=== PATIENT | female | born 1955 | race Caucasian/White ===

== ENCOUNTER 2023-01-07 16:22 | Emergency (ER) | payer MEDICARE, OTHER ==
[~2023-01-07] VITALS: Ht 162.6 cm; Wt 102.1 kg
[~2023-01-07 16:22] MED LIST: PRAV40TA3 PO
[2023-01-07] MEDS ORDERED: diphenhydrAMINE 50 MG/1 ML VIAL ONE (17:22)
[2023-01-07] MEDS ORDERED: HYDROMORPHONE 1 MG/1 ML DISP.SYRIN ONE (17:22)
[2023-01-07] MEDS: diphenhydrAMINE 50 MG/1 ML VIAL IM ONE (17:33)
[2023-01-07] MEDS: HYDROMORPHONE 1 MG/1 ML DISP.SYRIN IM ONE (17:33)
[2023-01-07] MEDS ORDERED: NABU-140 PO (18:23)
[2023-01-07] MEDS ORDERED: HYDR-3980 PO (18:23)
[2023-01-07 18:52] VITALS: BP 166/81; TEMP 98.6; O2SAT 97
== END 2023-01-07 18:52 | disposition home or self-care (01) ==
LOC: ER 16:24
DX: M17.11 Unilateral primary osteoarthritis, right knee (principal); M54.40 Lumbago with sciatica, unspecified side; E03.9 Hypothyroidism, unspecified; E78.5 Hyperlipidemia, unspecified; Z79.899 Other long term (current) drug therapy
CPT/HCPCS: 29505; 72131; 73564; 96372; 99285; J1170; J1200; A4606; A4663

== ENCOUNTER 2023-01-12 16:09 | Emergency (ER) | payer MEDICARE, OTHER ==
[~2023-01-12] VITALS: Ht 160 cm; Wt 102.1 kg
[~2023-01-12 16:09] MED LIST changes: +HYDR-3980 PO; +NABU-140 PO
[2023-01-12] MEDS ORDERED: methylPREDNISolone ACETATE 40 MG VIAL IM ONE (17:30)
[2023-01-12 19:37] VITALS: BP 150/67; TEMP 98; O2SAT 96
== END 2023-01-12 19:30 | disposition home or self-care (01) ==
LOC: ER 16:09
DX: M17.11 Unilateral primary osteoarthritis, right knee (principal); M54.40 Lumbago with sciatica, unspecified side; E03.9 Hypothyroidism, unspecified; E78.5 Hyperlipidemia, unspecified; Z79.899 Other long term (current) drug therapy
CPT/HCPCS: 29505; 93971; 96372; 99285; J1030; A4606; A4663

== ENCOUNTER 2024-02-14 03:19 | Emergency (ER) | payer MEDICARE, OTHER ==
[~2024-02-14] VITALS: Ht 152.4 cm; Wt 95.3 kg
[2024-02-14 04:21] LABS: BASOPHILS % (AUTO) 0.2 % (0.0-2.0); EOSINOPHILS # (AUTO) 0.1 K/uL (0.0-0.7); EOSINOPHILS % (AUTO) 0.6 % (0.0-7.0); HEMATOCRIT 43.2 % (31.2-41.9); HEMOGLOBIN 14.3 g/dL (10.9-14.3); LYMPHOCYTES # (AUTO) 5.4 K/uL (0.8-4.8); LYMPHOCYTES % (AUTO) 40.8 % (20.5-51.5); MEAN CORPUSCULAR HEMOGLOBIN 28.9 uug (24.7-32.8); MEAN CORPUSCULAR HGB CONC 33 g/dL (32.3-35.6); MEAN CORPUSCULAR VOLUME 87.2 fL (75.5-95.3); MONOCYTES # (AUTO) 0.9 K/uL (0.1-1.30); MONOCYTES % (AUTO) 6.6 % (0.0-11.0); NEUTROPHILS # (AUTO) 6.9 K/uL (1.8-8.9); NEUTROPHILS % (AUTO) 51.8 % (38.5-71.5); PLATELET COUNT (AUTO) 209 K/uL (179-408); RED BLOOD CELL COUNT(AUTO) 4.95 MIL/uL (3.63-4.92); RED CELL DISTRIBUTION WIDTH 14.6 % (12.3-17.7); WHITE BLOOD COUNT (AUTO) 13.3 K/uL (3.8-11.8)
[2024-02-14 04:37] LABS: POTASSIUM 3.3 mmol/L (3.5-5.1)
[2024-02-14] MEDS ORDERED: POTASSIUM CHLORIDE 20 MEQ TAB.PRT.SR ONE (05:32)
[2024-02-14] MEDS ORDERED: ACETAMINOPHEN 325 MG TABLET ONE (05:32)
[2024-02-14] MEDS: POTASSIUM CHLORIDE 20 MEQ TAB.PRT.SR PO ONE (05:35)
[2024-02-14] MEDS: ACETAMINOPHEN 325 MG TABLET PO ONE (05:35)
[2024-02-14 05:51] VITALS: BP 160/62; TEMP 98.6; O2SAT 99
== END 2024-02-14 05:52 | disposition home or self-care (01) ==
LOC: ER 03:30
DX: R51.9 Headache, unspecified (principal); M54.50 Low back pain, unspecified; R10.9 Unspecified abdominal pain; E11.9 Type 2 diabetes mellitus without complications; I10 Essential (primary) hypertension; F41.9 Anxiety disorder, unspecified; M19.90 Unspecified osteoarthritis, unspecified site; E78.5 Hyperlipidemia, unspecified; E03.9 Hypothyroidism, unspecified; Z79.899 Other long term (current) drug therapy
CPT/HCPCS: 36415; 70450; 85025; A4606; A4663

== ENCOUNTER 2024-04-10 13:08 | Emergency (ER) | payer MEDICARE, OTHER ==
[~2024-04-10] VITALS: Ht 152.4 cm; Wt 90.7 kg
[2024-04-10] MEDS ORDERED: ONDANSETRON 4 MG/2 ML VIAL ONE (13:52)
[2024-04-10] MEDS ORDERED: MORPHINE SULFATE 4 MG/1 ML DISP.SYRIN ONE (13:52)
[2024-04-10] MEDS: ONDANSETRON 4 MG/2 ML VIAL IV ONE (14:01)
[2024-04-10] MEDS: IV NORMAL SALINE 1000 ML BAG IV ONE (14:01)
[2024-04-10] MEDS: MORPHINE SULFATE 4 MG/1 ML DISP.SYRIN IV ONE (14:02)
[2024-04-10 14:15] LABS: BASOPHILS % (AUTO) 0.5 % (0.0-2.0); EOSINOPHILS # (AUTO) 0.1 K/uL (0.0-0.7); EOSINOPHILS % (AUTO) 1.7 % (0.0-7.0); HEMATOCRIT 37.8 % (31.2-41.9); HEMOGLOBIN 12.2 g/dL (10.9-14.3); LYMPHOCYTES # (AUTO) 2.8 K/uL (0.8-4.8); LYMPHOCYTES % (AUTO) 37.1 % (20.5-51.5); MEAN CORPUSCULAR HEMOGLOBIN 28.5 uug (24.7-32.8); MEAN CORPUSCULAR HGB CONC 32 g/dL (32.3-35.6); MEAN CORPUSCULAR VOLUME 88.2 fL (75.5-95.3); MONOCYTES # (AUTO) 0.5 K/uL (0.1-1.30); MONOCYTES % (AUTO) 6.7 % (0.0-11.0); NEUTROPHILS # (AUTO) 4.1 K/uL (1.8-8.9); PLATELET COUNT (AUTO) 179 K/uL (179-408); RED BLOOD CELL COUNT(AUTO) 4.28 MIL/uL (3.63-4.92); WHITE BLOOD COUNT (AUTO) 7.6 K/uL (3.8-11.8)
[2024-04-10 14:20] LABS: *BILIRUBIN,URIN NEGATIVE (NEGATIVE); *CLARITY,URINE CLEAR (CLEAR); *COLOR,URINE YELLOW (YELLOW); *KETONES,URINE NEGATIVE (NEGATIVE); *PROTEIN,URINE NEGATIVE (NEGATIVE); *UROBILINOGEN,URINE 0.2 E.U./dl (NORMAL); LEUKOCYTE ESTERASE ,URINE TRACE (NEGATIVE); NITRITE, URINE NEGATIVE (NEGATIVE); UGLUCOSE NEGATIVE (NEGATIVE)
[2024-04-10 14:36] LABS: *BLOOD, URINE TRACE (NEGATIVE)
[2024-04-10 14:37] LABS: DIFFERENTIAL COMMENT 1
[2024-04-10 14:40] LABS: BACTERIA,URINE MODERATE /HPF (NONE SEEN)
[2024-04-10 14:40] LABS: CALCIUM 8.9 mg/dL (8.5-10.1); CREATININE 0.8 mg/dL (0.6-1.3); POTASSIUM 4.3 mmol/L (3.5-5.1)
[2024-04-10 14:46] LABS: ALBUMIN 3.1 g/dL (3.4-5.0); BILIRUBIN,DIRECT 0.1 mg/dL (0.0-0.2); BILIRUBIN,TOTAL 0.3 mg/dL (0.2-1.0); TOTAL PROTEIN, SERUM 6.3 g/dL (6.4-8.2)
[2024-04-10] MEDS ORDERED: TRAM50TA2 PO (15:57)
[2024-04-10] MEDS ORDERED: FOSFOMYCIN TROMETHAMINE 3 GM PACKET ONE (16:01)
[2024-04-10] MEDS: FOSFOMYCIN TROMETHAMINE 3 GM PACKET PO ONE (16:05)
[2024-04-10 16:56] VITALS: BP 132/52; TEMP 98.6; O2SAT 98
== END 2024-04-10 16:57 | disposition home or self-care (01) ==
LOC: ER 13:08
DX: N39.0 Urinary tract infection, site not specified (principal); E11.9 Type 2 diabetes mellitus without complications; Z79.899 Other long term (current) drug therapy
CPT/HCPCS: 99285; 74176; 96374; 96361; 96375; 80076; 80048; 81001; 85025; 36415; 87086; J2405; J2270; J7040; A4606; A4663